=== PATIENT | male | born 1990 | race Caucasian/White ===

== ENCOUNTER → 2025-02-08 | Outpatient (CLI) | payer BC, SELFPAY ==
--- NOTE | 2025-02-08 08:32 | US_ITS ---
PROCEDURE: EXT NON VASC LIMITED/SOFT TISS 02/08/2025 REASON FOR EXAM: LEFT WRIST TECHNIQUE: Procedure Code: [id number] Modality: US Procedure: EXT NON VASC LIMITED/SOFT TISS COMPARISON: None FINDINGS: No obvious soft tissue abnormalities could be noted on the dorsum of the left wrist. US/Ext Non Vasc Limited/Soft Tiss IMPRESSION: No obvious abnormalities. Reading [facility]
== END | disposition home or self-care (01) ==
PROVIDERS: Referring Provider Orthopaedic Surgery Sports Medicine; Visit Provider Orthopaedic Surgery Sports Medicine
DX: M67.432 Ganglion, left wrist (principal)
CPT/HCPCS: 76882